=== PATIENT | female | born 1960 | race African-American/Black ===

== ENCOUNTER 2017-07-19 08:47 | Emergency (ER) | payer MEDICARE, MEDICAID ==
[~2017-07-19] VITALS: Ht 167.6 cm; Wt 87.0 kg
[2017-07-19] MEDS ORDERED: METOCLOPRAMIDE HCL 10MG TABLET PO ONE (11:15)
[2017-07-19] MEDS ORDERED: KETOROLAC 60MG/2ML VIAL IM ONE (11:15)
[2017-07-19] MEDS ORDERED: SODIUM CHLORIDE 0.9% 1,000 ML IV ONE (12:10)
[2017-07-19 13:07] LABS: BASOPHILS % 0.5 % (0.0-2.0); EOSINOPHILS % 0.9 % (0.0-5.0); HEMATOCRIT. 39.8 % (36.0-48.0); HEMOGLOBIN. 13.8 g/dL (12.0-16.0); LYMPHOCYTES % 32.1 % (20.0-50.0); MEAN CORPUSCULAR HEMOGLOBIN 30.8 pg (28.0-32.0); MEAN CORPUSCULAR VOLUME 88.8 fL (81.0-99.0); MEAN PLATELET VOLUME 8.2 fl (7.4-10.4); MONOCYTES % 5.8 % (2.0-8.0); NEUTROPHILS % 60.7 % (40.0-76.0); PLATELET 259 x1000/uL (130-400); RED BLOOD CELL COUNT 4.48 mill/uL (4.2-5.4); RED CELL DISTRIBUTION WIDTH 13.7 % (11.6-14.6)
[2017-07-19 13:15] LABS: PROTHROMBIN TIME 10.7 sec (9.4-11.6)
[2017-07-19 13:22] LABS: CARBON DIOXIDE 28 mEq/L (21-32); CHLORIDE 105 mEq/L (98-107)
[2017-07-19 14:15] VITALS: BP 120/77
== END 2017-07-19 14:47 | disposition home or self-care (01) ==
LOC: ER 11:58
DX: R51 Headache (principal); R55 Syncope and collapse
CPT/HCPCS: 36415; 70450; 80053; 85025; 85610; 93005; 96360; 96361; 96372; 99285; J1885; J7030; J8597